=== PATIENT | female | born 2000 | race Asian ===

== ENCOUNTER 2024-12-20 19:03 | Emergency (ER) | payer MEDICAID, SELFPAY ==
[2024-12-20 20:18] VITALS: BP 112/73; PULSE 93; RESP 18; TEMP 37.2; O2SAT 99; BMI 31.2
--- NOTE | 2024-12-20 20:25 | XR_ITS ---
Examination: Abdomen sonogram, Limited Date and time of exam: December 20, 20242054 hours INDICATIONS: Epigastric pain and vomiting coughing today Technique: Real-time burks scale transabdominal sonographic images of the upper abdomen obtained. Findings: Normal gallbladder Normal common bile duct 0.3 cm Pancreatic head 2.5 cm Liver 14.8 cm fatty infiltration Normal hepatopedal portal venous flow Patent IVC IMPRESSION: Normal gallbladder. Fatty liver
--- NOTE | 2024-12-20 20:27 | PD.EDADULT ---
ED General RME/HPI General Chief complaint: Flu Like Symptoms Stated complaint: VOMITING Time Seen by Provider: 12/20/24 20:19 Arrival date/time: 12/20/24 19:03 RME / HPI RME / HPI narrative: 24-year-old female patient came in for evaluation regarding epigastric pain. Onset of symptoms since 8 hours ago sudden onset of epigastric pain, associated with vomitings severity moderate associated with nasal congestion, sore throat, and not feeling well. Denies any fever. Denies any diarrhea or constipation denies any other complaints no medication was taken prior to arrival. Related Data Previous Rx's ?Medication ?Instructions ?Recorded tranexamic acid 650 mg tablet 650 mg PO Q12H #6 tabs 02/01/24 ibuprofen 800 mg tablet 800 mg PO Q8H PRN pain #30 tabs 12/20/24 oseltamivir 75 mg capsule (Tamiflu) 75 mg PO BID 5 days #10 caps 12/20/24 Allergies Allergy/AdvReac Type Severity Reaction Status Date / Time No Known Allergies Allergy Verified 12/20/24 19:09 Review of Systems Review of Systems Narrative Review of Systems: Review of system reviewed and within normal limits except mentioned in HPI ED Exam Narrative Physical exam: VITAL SIGNS: Reviewed. GENERAL APPEARANCE: Alert and interactive, follows commands, no acute distress, HEAD AND FACE: Non-traumatic. ENT: PERRL, pink conjunctivitis, eyelid no trauma, Mucous membrane moist. NECK: Supple, nontender, no nuchal rigidity. CHEST: No tenderness, no crepitus, no paradoxical movement, no retractions. LUNGS: Clear, well ventilated, symmetric, no rales, no wheezing, no ronchi, no stridor, good breath sounds bilaterally. HEART: Regular rate, regular rhythm, no murmur, no gallops. ABDOMEN: Soft, positive bowel sounds, nondistended, no guarding, epigastric tenderness, no rebound, no masses, RECTAL: Deferred. GENITAL: Deferred. NEUROLOGICAL: Gross motor function intact sensory function intact, Appropriate for age. MUSCULOSKELETAL: low back nontender, full range of motion. EXTREMITIES: Nontender, full range of motion. SKIN: Color pink, dry, no rash, no lacerations, no abrasions, no contusions. LYMPHATICS: Deferred. Course Quality Measures none Orders Category Date Time Status Bedside COVID-19 Antigen Test NOW Care 12/20/24 20:24 Active Bedside Influenza A&B Antigen Test NOW Care 12/20/24 19:22 Active Bedside Influenza A&B Antigen Test NOW Care 12/20/24 20:25 Completed US gall bladder Stat Exams 12/20/24 20:25 Completed CBC Stat Lab 12/20/24 21:11 Completed Comprehensive Metabolic Panel Stat Lab 12/20/24 21:11 Completed HCG Qualitative,Urine Stat Lab 12/20/24 20:34 Completed Lipase Stat Lab 12/20/24 21:11 Completed Prothrombin Time with INR Stat Lab 12/20/24 21:11 Completed UA, C/S IF [Urinalysis, C/S if Indicated] Stat Lab 12/20/24 20:34 Completed Acetaminophen Tab [Tylenol ES Tab] Med 12/20/24 20:24 Discontinued 1,000 mg PO X1 ONE Ondansetron Odt [Zofran Odt] Med 12/20/24 20:24 Discontinued 4 mg PO X1 ONE Oseltamivir [Tamiflu] Med 12/20/24 22:10 Discontinued 75 mg PO X1 ONE Vital Signs Vital signs: Vital Signs Temperature 99 F 12/20/24 20:18 Pulse Rate 93 12/20/24 20:18 Respiratory Rate 18 12/20/24 20:18 Blood Pressure 112/73 12/20/24 20:18 Pulse Oximetry (%) 99 12/20/24 20:18 Oxygen Delivery Method Room Air 12/20/24 20:18 [facility] Patient data External records reviewed:: None Clinical information provided by:: patient and family Social determinants that could affect healthcare access:: none Patient has the following chronic illnesses:: None How is presenting disease/condition affected by chronic disease/condition?: no chronic disease Evaluation data The following diagnostics were reviewed and interpreted by me:: lab results and radiology exam(s) Lab and/or radiology exams considered but not ordered:: None Interpretation Summary: See results in [facility] Medications Medications considered but not ordered:: None Medication administrations:: Medication Administration History Discontinued Medications Acetaminophen (Acetaminophen 500 Mg Tablet) 1,000 mg PO X1 ONE Stop: 12/20/24 20:25 Last Admin: 12/20/24 20:55 Dose: 1,000 mg Documented By: CHICA Ondansetron HCl (Ondansetron Odt 4 Mg Tabrap) 4 mg PO X1 ONE; Protocol Stop: 12/20/24 20:25 Last Admin: 12/20/24 20:55 Dose: 4 mg Documented By: CHICA Oseltamivir Phosphate (Oseltamivir 75 Mg Capsule) 75 mg PO X1 ONE Stop: 12/20/24 22:11 Last Admin: 12/20/24 22:26 Dose: 75 mg Documented By: Zofran Tylenol and Tamiflu Consultations Consultation(s) initiated? (list below): No Diagnosis Differential Diagnosis ED Complaint MDM: Influenza nausea vomiting epigastric pain, biliary colic Most likely diagnosis given after review of the tests above:: Influenza Admission Indicated Admission indicated?: not indicated Explain why admission is indicated or not indicated:: None Admission Request Was there a request for admission?: No Disposition Plan Disposition Plan: Discharge Discharge Attestation Discharge Attestation: The patient and all family members were given an opportunity to ask questions and understood the discharge instructions. Discharge instructions specifically effects, indications for sooner follow up or return to the emergency department, and the expected course of current diagnosis. Patient condition: Stable Medical Decision Making MDM Narrative MDM Narrative: 24-year-old female patient came in for evaluation regarding epigastric pain. Onset of symptoms since 8 hours ago sudden onset of epigastric pain, associated with vomitings severity moderate associated with nasal congestion, sore throat, and not feeling well. Denies any fever. Denies any diarrhea or constipation denies any other complaints no medication was taken prior to arrival. Patient tested positive for influenza. The rest of the labs unremarkable. Ultrasound also the gallbladder came back unremarkable. Patient was noted to be feeling better after Tylenol and Zofran. Was also given Tamiflu in the ED. Patient appears nontoxic and hemodynamically stable. Patient discharged home and instructed to follow-up with primary care provider in 24 to 48 hours. Instructed to return to the emergency department immediately if worsening of symptoms Differential Diagnosis Differential Diagnosis: Influenza nausea vomiting epigastric pain, biliary colic Lab Data 12/20/24 21:11 12/20/24 21:11 Labs: Lab Results 12/20/24 12/20/24 Range/Units 20:34 21:11 WBC 12.1 H (3.6-11.0) Thou/mm3 RBC 4.66 (4.00-5.20) Miln/mm3 Hgb 13.2 (12.0-16.0) g/dL Hct 38.9 (36.0-46.0) % MCV 84 (80-100) fL MCH 28.3 (25.0-35.0) pg MCHC 33.9 (31.0-37.0) g/dl RDW Std Deviation 38.5 (36.4-46.3) fL Plt Count 464 H (140-440) Thou/mm3 Neut % (Auto) 87 H (37-80) % Lymph % (Auto) 10 (10-50) % [place] % (Auto) 3 (0-12) % Eos % (Auto) 0 (0-10) % Baso % (Auto) 0 (0-2.5) % Neut # (Auto) 10.5 H (1.8-7.7) Thou/mm3 Lymph # (Auto) 1.2 (1.0-4.8) Thou/mm3 [place] # (Auto) 0.3 (0.0-0.8) Thou/mm3 Eos # (Auto) 0.0 (0.0-0.5) Thou/mm3 Baso # (Auto) 0.0 (0.0-0.2) Thou/mm3 Immature Gran # (Auto) 0.05 H (0.00-0.00) Thou/mm3 Absolute Nucleated RBC 0.00 (0.00-0.00) Thou/mm3 Immature Gran % 0 (0-0) % Nucleated RBC % 0 (0) /100 WBC PT 11.0 (9.0-12.2) Seconds INR 1.0 (0.9-1.3) Sodium 139 (136-145) mMol/L Potassium 4.0 (3.4-5.1) mMol/L Chloride 103 (98-107) mMol/L Carbon Dioxide 23.8 (20.0-31.0) mMol/L Anion Gap 12 (7-16) BUN 12 (9-23) mg/dL Creatinine 0.7 (0.6-1.3) mg/dL Estim Creat Clear Calc 110.2 (>60) mL/min eGFR > 60 (60 - ) See Note BUN/Creatinine Ratio 17 (12-20) Ratio Glucose 110 H (74-106) mg/dL Calculated Osmolality 278 (275-295) Calcium 10.6 (8.3-10.6) mg/dL Corrected Calcium 10.6 H (8.5-10.1) mg/dL Total Bilirubin 0.4 (0.3-1.2) mg/dL AST 68 H (0-34) U/L ALT 156 H (10-49) U/L Alkaline Phosphatase 80 (46-116) U/L Total Protein 8.6 H (5.7-8.2) gm/dL Albumin 5.2 H (3.5-5.0) gm/dL Globulin 3.4 (2.3-3.5) gm/dL Albumin/Globulin Ratio 1.5 (1.2-2.2) Lipase 25 (12-53) U/L Ur Collection Type Clean Catch Urine Color Yellow (Lt Yel-Yel) Urine Clarity Clear (Clear/Hazy) Urine pH 6.5 (5.0-7.0) Ur Specific [place] 1.035 (1.001-1.035) Urine Protein 1+ A (Neg - Trace) Urine Glucose (UA) Negative (Negative) Urine Ketones 3+ A (Negative) Urine Blood 3+ A (Negative) Urine Nitrite Negative (Negative) Urine Bilirubin Negative (Negative) Urine Urobilinogen (Auto) Negative (0.0-1.0) mg/dL Ur Leukocyte Esterase Negative (Negative) Urine RBC 3 (0-3) /hpf Urine WBC 3 (0-5) /hpf Ur Squamous Epith Cells 10 H (0-5) /hpf Urine Bacteria None (None) Ur Culture Indicated? Not Indicated Urine HCG, Qual Negative Discharge Plan Plan Patient Disposition: HOME (Self Care) Disposition Comment: Stable Prescriptions/Referrals Prescriptions/Med Rec: New oseltamivir [Tamiflu] 75 mg capsule 75 mg PO BID 5 Days Qty: 10 0RF ibuprofen 800 mg tablet 800 mg PO Q8H PRN (Reason: pain) Qty: 30 0RF No Action tranexamic acid 650 mg tablet 650 mg PO Q12H Qty: 6 0RF Referrals: No Primary/Family,Physician [Primary Care Provider] - In 1 week Problem List Clinical Impression: Influenza Patient/Caregiver Discharge Instructions Discharge Activity: activity as tolerated Education Materials: ED Influenza (Adult) Additional Instructions: Thank you for the opportunity for serving you today. You are stable for discharged . You are advised to: Follow-up with your PCP in 1 to 2 days Return to ED for worsening of symptoms Increase oral fluids Take medication as prescribed Print Language: Nigerien Stand Alone Forms: Laura Award Info., Patient Portal Info Letter PA/AWNING CRAFTSPERSON Supervising Physician PA/AWNING CRAFTSPERSON Supervising Physician: MD Amanda
[2024-12-20 20:43] LABS: Collection Type, Urine Clean Catch
[2024-12-20] MEDS: ACETAMINOPHEN 500 MG TABLET 1000 MG PO (20:55)
[2024-12-20] MEDS: ONDANSETRON ODT 4 MG TABRAP PO (20:55)
[2024-12-20 21:01] LABS: Bilirubin,Urine Negative (Negative); Blood,Urine 3+ (Negative); Clarity,Urine Clear (Clear/Hazy); Color,Urine Yellow (Lt Yel-Yel); Culture Indicated,Urine Not Indicated; Glucose, Urine Negative (Negative); Ketones,Urine 3+ (Negative); Leukocyte Esterase,Urine Negative (Negative); Nitrite,Urine Negative (Negative); PH,Urine 6.5 (5.0-7.0); Protein,Urine 1+ (Neg - Trace); RBC,Urine 3 /hpf (0-3); Specific Gravity,Urine 1.035 (1.001-1.035); Squamous Epithelial Cell,Urine 10 /hpf (0-5); Urobilinogen,Urine Negative mg/dL (0.0-1.0); WBC,Urine 3 /hpf (0-5)
[2024-12-20 21:02] LABS: HCG Qualitative,Urine Negative
[2024-12-20 21:23] LABS: Basophils % (Auto) 0 % (0-2.5); Eosinophils % (Auto) 0 % (0-10); Hematocrit 38.9 % (36.0-46.0); Hemoglobin 13.2 g/dL (12.0-16.0); Immature Granulocytes % (Auto) 0 % (0-0); Immature Granulocytes Auto 0.05 Thou/mm3 (0.00-0.00); Lymphocytes # (Auto) 1.2 Thou/mm3 (1.0-4.8); Lymphocytes % (Auto) 10 % (10-50); Mean Corpuscular HGB Conc 33.9 g/dl (31.0-37.0); Mean Corpuscular Hemoglobin 28.3 pg (25.0-35.0); Mean Corpuscular Volume 84 fL (80-100); Monocytes # (Auto) 0.3 Thou/mm3 (0.0-0.8); Monocytes % (Auto) 3 % (0-12); Neutrophils # (Auto) 10.5 Thou/mm3 (1.8-7.7); Neutrophils % (Auto) 87 % (37-80); Nucleated Red Blood Cell % 0 /100 WBC (0); Platelet Count 464 Thou/mm3 (140-440); RDW Standard Deviation 38.5 fL (36.4-46.3); Red Blood Count 4.66 Miln/mm3 (4.00-5.20); White Blood Count 12.1 Thou/mm3 (3.6-11.0)
[2024-12-20 21:45] LABS: Alanine Aminotransferase 156 U/L (10-49); Albumin, Serum 5.2 gm/dL (3.5-5.0); Albumin/Globulin Ratio 1.5 (1.2-2.2); Alkaline Phosphatase 80 U/L (46-116); Anion Gap 12 (7-16); Aspartate Amino Transferase 68 U/L (0-34); BUN/Creatinine Ratio 17 Ratio (12-20); Bilirubin,Total 0.4 mg/dL (0.3-1.2); Blood Urea Nitrogen 12 mg/dL (9-23); Calcium 10.6 mg/dL (8.3-10.6); Calcium (Corrected) 10.6 mg/dL (8.5-10.1); Carbon Dioxide 23.8 mMol/L (20.0-31.0); Chloride 103 mMol/L (98-107); Creatinine (Component) 0.7 mg/dL (0.6-1.3); Estimated Creatinine Clearance 110.2 mL/min (>60); Globulin 3.4 gm/dL (2.3-3.5); Glucose 110 mg/dL (74-106); Lipase 25 U/L (12-53); Osmolality,Calculated 278 (275-295); Sodium 139 mMol/L (136-145); Total Protein 8.6 gm/dL (5.7-8.2); eGFR > 60 See Note
[2024-12-20] MEDS: OSELTAMIVIR 75 MG CAPSULE PO (22:26)
[2024-12-20 22:32] VITALS: BP 121/83; PULSE 78; RESP 18; TEMP 36.9; O2SAT 97
--- NOTE | 2024-12-20 22:35 | PC.NURSE ---
[facility]
== END 2024-12-20 22:52 | disposition home or self-care (01) ==
PROVIDERS: Nurse Practitioner Family; Emergency Provider Emergency Medicine
DX: J11.1 Influenza due to unidentified influenza virus with other respiratory manifestations (principal); R10.13 Epigastric pain; R11.10 Vomiting, unspecified
CPT/HCPCS: 36415; 76705; 80053; 81001; 81025; 83690; 85025; 85610; 87400; 87811; 99284; Q0162; A9270